=== PATIENT | female | born 1995 | race Hispanic/Latino ===

== ENCOUNTER 2017-12-30 22:38 | Emergency (ER) | payer SELFPAY ==
[2017-12-31 00:08] LABS: APPEARANCE,URINE Clear (CLEAR); BILIRUBIN,URINE Negative (NEGATIVE); COLOR,URINE Yellow (YELLOW); GLUCOSE, URINE (UA) Negative (NEGATIVE); KETONES,URINE Negative (NEGATIVE); LEUKOCYTE ESTERASE ,URINE Negative (NEGATIVE); NITRATE,URINE Negative (NEGATIVE); OCCULT BLOOD,URINE Negative (NEGATIVE); PROTEIN,URINE POS 1+ (NEGATIVE)
[2017-12-31 00:09] LABS: HCG,QUAL RESULT NEGATIVE (NEGATIVE)
[2017-12-31 00:21] LABS: BACTERIA,URINE None Seen /HPF (None Seen); MUCUS,URINE Few LPF (None Seen); RBC,URINE 0-1 /HPF (0-1); SQUAMOUS EPITHELIAL CELL,UR Moderate /HPF (0-2); WBC,URINE None Seen /HPF (0-1)
[2017-12-31] MEDS ORDERED: DiphenhydrAMINE HCL 50 MG/ML VIAL ONE (00:38)
[2017-12-31] MEDS ORDERED: SODIUM CHLORIDE 0.9% 1000ML 1,000 ML IV ONE (00:39)
[2017-12-31] MEDS ORDERED: ONDANSETRON HCL MDV 20ML 2 MG/ML VIAL ONE (00:39)
[2017-12-31] MEDS ORDERED: METOCLOPRAMIDE 10 MG TABLET ONE (00:49)
== END 2017-12-31 02:01 | disposition home or self-care (01) ==
LOC: EDH 22:38
DX: G44.209 Tension-type headache, unspecified, not intractable (principal)
CPT/HCPCS: 81001; 81025; 96361; 96374; 96375; 99284; J1200; J7030